=== PATIENT | female | born 1985 | race Caucasian/White ===

== ENCOUNTER 2016-05-09 16:56 | Emergency (ER) | payer MEDICARE | END 2016-05-09 18:52 | disposition left against medical advice (07) | LOC: ER 16:56 | DX: R51 Headache (principal) | CPT/HCPCS: 36415; 80053; 81003; 83690; 84703; 85025 ==

== ENCOUNTER 2016-05-09 20:07 | Emergency (ER) | payer MEDICARE ==
[2016-05-09] MEDS ORDERED: METOCLOPRAMIDE 10 MG/2 ML VIAL ONE (20:55)
[2016-05-09] MEDS ORDERED: KETOROLAC 30 MG/ML VIAL ONE (20:56)
[2016-05-09] MEDS ORDERED: DIPHENHYDRAMINE 50 MG/ML VIAL ONE (20:56)
[2016-05-09] MEDS ORDERED: SODIUM CHLORIDE 0.9% 1,000 ML ONE (21:35)
== END 2016-05-09 22:21 | disposition home or self-care (01) ==
LOC: ER 20:07
DX: J01.30 Acute sphenoidal sinusitis, unspecified (principal); F17.210 Nicotine dependence, cigarettes, uncomplicated
CPT/HCPCS: 36415; 70450; 80053; 81003; 83690; 84703; 85025; 96374; 96375; 99284; J1885